=== PATIENT | female | born 1960 | race Caucasian/White ===

== ENCOUNTER → 2017-05-25 | Outpatient (CLI) | payer OTHER | LOC: MAMMO 08:30 | DX: Z12.31 Encounter for screening mammogram for malignant neoplasm of breast (principal) | CPT/HCPCS: G0202 ==

== ENCOUNTER → 2018-07-13 | Outpatient (CLI) | payer OTHER | LOC: MAMMO 12:45 | DX: Z12.31 Encounter for screening mammogram for malignant neoplasm of breast (principal) ==